=== PATIENT | female | born 1965 | race Caucasian/White ===

== ENCOUNTER 2024-08-11 13:51 | Outpatient (CLI) | payer BC, SELFPAY ==
--- NOTE | 2024-08-11 14:00 | CRLHL7_ITS ---
For Patients: As a result of the Century Cures Act, medical imaging exams and procedure reports are released immediately into your electronic medical record. You may view this report before your referring provider. If you have questions, please contact your health care provider. INDICATION: Postmenopausal bleeding COMPARISON: none TECHNIQUE: 2D wilkins scale and color Doppler images were acquired of the pelvis using a transabdominal and transvaginal approach. FINDINGS: Sonographic images demonstrate a normal size and smooth outer contour of the uterus. Uterus measures 8.1 cm in length by 3.6 cm in AP diameter by 4.4 cm in transverse dimension. Slightly hypoechoic fibroid is present within the fundus, submucosal, measuring 18 x 10 x 13 millimeters. The endometrial lining measures 8 mm in composite thickness. Solid-appearing structure within the lower uterine segment measures 2.0 x 1.4 x 1.8 cm. The right ovary measures 2.2 x 0.9 x 1.5 cm in size and the left ovary measures 3.1 x 1.2 x 1.5 cm. The ovaries demonstrate normal arterial and venous blood flow on color Doppler analysis. There are no suspicious fluid collections within the cul-de-sac. IMPRESSION: 1.8 cm submucosal fibroid. Endometrial thickness 8 millimeters. Indeterminate solid structure within the lower uterine segment measuring 2 cm, possible fibroid. Dictated by Jewel Bonner MD @ 08/11/2024 2:53:41 PM (Electronically Signed)
== END 2024-08-11 13:52 | disposition home or self-care (01) ==
LOC: US 13:52
PROVIDERS: Visit Provider Obstetrics & Gynecology
DX: N95.0 Postmenopausal bleeding (principal); D25.0 Submucous leiomyoma of uterus
CPT/HCPCS: 76830; 76856

== ENCOUNTER 2025-02-27 09:05 | Outpatient (CLI) | payer BC, SELFPAY ==
--- NOTE | 2025-02-27 09:15 | CRLHL7_ITS ---
For Patients: As a result of the Century Cures Act, medical imaging exams and procedure reports are released immediately into your electronic medical record. You may view this report before your referring provider. If you have questions, please contact your health care provider. CLINICAL HISTORY: Follow-up postmenopausal bleeding TECHNIQUE: Transabdominal and transvaginal pelvic ultrasound. Transvaginal images of the pelvis were obtained for better visualization of the ovaries. Grayscale and color Doppler images were submitted. COMPARISON: 08/11/2024 pelvic ultrasound FINDINGS: Uterus: 8.0 x 3.0 x 4.9 cm. 2.2 cm slightly hyperechoic solid mass in the cervix. This appears sharply demarcated and Doppler images suggest a vascular stalk. Suspect this is an endocervical polyp but may be a fibroid. 1.2 cm fundal fibroid is similar. Endometrium: 2.5 mm Normal appearance in the fundus and body. Right ovary: 3.2 x 1.3 x 1.5 cm Normal appearance. Left ovary: 2.1 x 1.2 x 1.3 cm Normal appearance. No adnexal mass. No free fluid. IMPRESSION: Similar 2.2 cm cervical mass, possibly an endocervical polyp. Dictated by Gurwinder Barnett MD @ 03/01/2025 9:14:58 AM (Electronically Signed)
== END 2025-02-27 09:06 | disposition home or self-care (01) ==
LOC: US 09:05
PROVIDERS: Visit Provider Obstetrics & Gynecology
DX: N95.0 Postmenopausal bleeding (principal); R19.09 Other intra-abdominal and pelvic swelling, mass and lump
CPT/HCPCS: 76830; 76856